=== PATIENT | male | born 1985 | race Caucasian/White ===

== ENCOUNTER 2016-04-26 17:21 | Emergency (ER) | payer OTHER ==
[~2016-04-26] VITALS: Ht 170.2 cm; Wt 77.1 kg
--- NOTE | 2016-04-26 18:21 | ED PSYCHIATRIC COMPLAINT ---
See Addendum History of Present Illness General Chief Complaint: ETOH/Drug Related Complaint Stated Complaint: ETOH DETOX Source: patient, family Exam Limitations: no limitations Vital Signs & Intake/Output Vital Signs & Intake/Output Vital Signs Date Time Temp Pulse Resp B/P Pulse O2 O2 Flow FiO2 Ox Delivery Rate 04/27 0735 97.9 82 18 138/84 98 Room Air 04/27 0734 97.9 82 18 138/84 04/27 0642 97.1 62 16 128/74 04/27 0513 96.6 57 16 120/71 99 Nasal Cannula 04/27 0500 96.6 57 16 120/71 04/27 0202 96.0 82 18 136/60 98 Room Air 04/27 0200 96.0 82 18 136/60 04/26 2110 96.3 80 16 145/86 04/26 2110 96.3 80 16 145/86 98 Room Air 04/26 1917 Room Air 04/26 1738 98.1 100 18 131/88 98 Room Air ED Intake and Output 04/27 0000 04/26 1200 Intake Total Output Total Balance Patient 170 lb Weight Allergies Coded Allergies: No Known Allergies (04/26/16) Reconcile Medications Acamprosate Calcium 333 MG TABLET. 2 TAB PO TID ALCOHOL CRAVINGS (Reported) Hydroxyzine Pamoate 50 MG CAPSULE 1 CAP PO BID ANXIETY (Reported) Lorazepam (Unknown Strength) TABLET (Unknown Dose) PO TID UNKNOWN (Reported) Quetiapine Fumarate 200 MG TABLET 1 TAB PO QPM MENTAL HEALTH (Reported) Triage Note: 31 YEAR OLD MALE TOE R , REQUEST ETOH DETOX, STATES THAT HE HAS BEEN DRINKING FOR OVER 8 YEARS, DRINKS VODKA DAILY , LAST DRINK WAS LAST WEDNESDAY. PT WAS SEEN AT [facility] AND WAS DISCHARGED FROM ER LAST WEDNESDAY WITH ATIVAN, PT ALSO TAKES SEROQUEL/VISTERIL/ACAMPROSTATE CALC . PT ALSO STATES THAT HE HAS A HSITORY OF SEIZURES. FRIEND STATES THAT HIS LAST DETOX HE WAS IN A PSYCHE UNIT. PT WAS IN DETOX IN 2014 IN [place]. DENIES SI OR HI. LAST TOOK ATIVAN AT 1600 Triage Nurses Notes Reviewed? yes HPI: Patient is a 31-year-old male presents with significant other for evaluation of alcohol detox, hallucinations, paranoia. Patient reports he drinks daily, last drink was 7 days ago. Patient was seen at [facility] and prescribed Ativan she has been taking 2-3 times a day. Patient last had a known alcohol withdrawal seizure in 2014. Patient's significant other reports that he has been having intermittent auditory and visual hallucinations. Patient reports that when he wakes up he hears a band playing that is not present. Occasionally he will see things that he does not believe to be there. No current hallucinations. Significant other also reports that patient has been increasingly paranoid over the past 1 week, very suspicious of things being present in the middle of the night. Patient denies illicit substance ingestion, suicidal ideation, homicidal ideation (REANNA POST) Past History Travel History Traveled to [place] past 21 day No Medical History Any Pertinent Medical History? see below for history Neurological: seizure EENT: NONE Cardiovascular: NONE Respiratory: NONE Gastrointestinal: NONE Hepatic: NONE Renal: NONE Musculoskeletal: NONE Psychiatric: alcohol dependence, bipolar disease, ADHD Endocrine: NONE Blood Disorders: NONE Cancer(s): NONE DIAL REFINISHER/Reproductive: NONE Surgical History Surgical History: non-contributory Psychosocial History What is your primary language Albanian Tobacco Use: Never used ETOH Use: alcoholic Illicit Drug Use: denies illicit drug use Family History Hx Contributory? No (REANNA POST) Review of Systems Review of Systems Constitutional: Denies: chills, fever. EENTM: Reports: no symptoms. Respiratory: Denies: cough, short of breath. Cardiovascular: Denies: chest pain. GI: Reports: no symptoms. Denies: abdominal pain. Genitourinary: Reports: no symptoms. Musculoskeletal: Reports: no symptoms. Skin: Reports: no symptoms. Neurological/Psychological: Reports: see HPI. Hematologic/Endocrine: Reports: no symptoms. Immunologic/Allergic: Reports: no symptoms. (REANNA POST) Physical Exam Physical Exam General Appearance: alert, awake Head: atraumatic, normal appearance Eyes: Bilateral: normal appearance, PERRL, EOMI. Ears, Nose, Throat: normal pharynx, normal ENT inspection, hearing grossly normal Neck: normal inspection, supple, full range of motion, no midline tenderness Respiratory: normal breath sounds, chest non-tender, no respiratory distress, lungs clear Cardiovascular: regular rate/rhythm Gastrointestinal: soft, non-tender Extremities: abrasions to dorsal surface of right hand, no bony tenderness. Full range of motion of all 4 extremities Neurological/Psychiatric: awake, alert, flat Appearance/Memory/Insight: impaired recent memory Behavoir/Eye Contact/Speech: cooperative Thoughts/Hallucinations: paranoid Skin: warm/dry SAD PERSONS SAD PERSONS Response Value Male Sex? yes 1 Depression/Hopelessness? yes 2 Excessive Ethanol/Drug Use? yes 1 Rational Thinking Loss? yes 2 Social Support? has support 0 Total 6 SAD PERSONS Done? yes (EMILY MADSEN,REANNA) Progress Differential Diagnosis: drug intoxication, drug overdose, drug withdrawal, electrolyte abnormality, encephalitis, IC hem/mass/tumor, psychosis, bipolar, mood disorder, personality disorder, medication withdrawal, alcohol withdrawal, DT's Plan of Care: Orders Procedure Date/time Status Regular Diet 04/27 B Active Patient Safety Monitor 04/27 0400 Active Patient Safety Monitor 04/27 0000 Active CIWA 04/26 183 Active URINE DRUG SCREEN FOR ER ONLY 04/26 183 Complete MAGNESIUM 04/26 183 Complete ETHANOL 04/26 183 Complete COMPREHENSIVE METABOLIC PANEL 04/26 183 Complete CBC WITHOUT DIFFERENTIAL 04/26 1834 Complete ED CRISIS PSYCH CONSULT 04/26 183 Active Laboratory Tests 04/26/16 185: Serum Alcohol < 10.0 04/26/16 185: Anion Gap 12, Estimated GFR > 60, BUN/Creatinine Ratio 20.0, Glucose 105 H, Calcium 10.2, Magnesium 2.0, Total Bilirubin 0.4, AST 42, ALT 85 H, Alkaline Phosphatase 52, Total Protein 7.3, Albumin 4.5, Globulin 2.8, Albumin/Globulin Ratio 1.6, CBC w Diff NO MAN DIFF REQ, RBC 4.28 L, MCV 94.5 H, MCH 31.4 H, RDW 14.4, MPV 8.0, Gran % 52.3, Lymphocytes % 28.6, Monocytes % 17.2 H, Eosinophils % 1.4, Basophils % 0.5, Absolute Granulocytes 2.7, Absolute Lymphocytes 1.5, Absolute Monocytes 0.9 H, Absolute Eosinophils 0.1, Absolute Basophils 0, PUBS MCHC 33.3, Urine Opiates Screen < 100.00, Methadone Screen 49, Barbiturate Screen < 60, Ur Phencyclidine Scrn < 6.00, Amphetamines Screen < 100 , U Benzodiazepines Scrn 701 H, Urine Cocaine Screen < 50, Urine Cannabis Screen < 5.00 Patient is 7 days since his last alcohol intake. No signs of florid withdrawal. Suspect that there is psychiatric pathology rather than etiology of symptoms being primarily from alcohol withdrawal. 04/26/2016 9:43:37 PM: Patient evaluated by psychiatric clinician, plan for patient to remain in the emergency department overnight for reevaluation in the morning. Patient's dose of Seroquel ordered, patient resting comfortably. 04/27/2016 12:32:02 AM: Patient signed out to Dr. enrique with plan for crisis re-evaluation in the morning. (REANNA POST) Hand-Off Endorsed To: RAFA ENRIQUE MD Endorsed Time: 003 Pending: consult (crisis re-evaluation) (REANNA POST) Hand-Off Endorsed To: MARIKA CARLSON MD Endorsed Time: 0700 Pending: consult (RAFA ENRIQUE MD) Hand-Off Endorsed To: EMELNY SMILEY DO Endorsed Time: 0700 Pending: consult (re-eval) (MARIKA CARLSON MD) Departure Departure Disposition: STILL A PATIENT Condition: Stable Clinical Impression Primary Impression: Bipolar disorder Qualifiers: Active/Remission status: remission status unspecified Qualified Code: F31.9 - Bipolar disorder, unspecified Referrals: PATIENT HAS NO PRIMARY CARE DR (PCP/Family) Departure Forms: Customer Survey General Discharge Information (REANNA POST) Departure Comments 04/27/16 7 AM PATIENT SIGNED OUT TO MT DR CARLSON, AWAITING CRISIS REEVALUATION. (EMELYN SMILEY DO)
[2016-04-26] MEDS ORDERED: LORAZEPAM1 M1 PO (18:57)
[2016-04-26] MEDS ORDERED: HYDROXYZINE PAM50 M1 PO (18:58)
[2016-04-26] MEDS ORDERED: ACAMPROSATE CA333 M1 PO (18:58)
[2016-04-26] MEDS ORDERED: QUETIAPINE FUM200 M1 PO (18:58)
[2016-04-26 19:16] LABS: ABSOLUTE BASOPHIL COUNT 0 /CUMM (0.0-0.2); ABSOLUTE EOSINOPHIL COUNT 0.1 /CUMM (0.0-0.7); ABSOLUTE GRANULOCYTE CT 2.7 /CUMM (1.4-6.5); ABSOLUTE LYMPH COUNT 1.5 /CUMM (1.2-3.4); ABSOLUTE MONOCYTE COUNT 0.9 /CUMM (0.10-0.60); BASOPHIL % 0.5 % (0.0-2.0); EOSINOPHIL % 1.4 % (0-5); GRANULOCYTE % 52.3 % (42.2-75.2); HEMATOCRIT 40.4 % (42-52); MEAN CORPUSCULAR HGB 31.4 PG (27.0-31.0); MEAN CORPUSCULAR HGB CONC 33.3 G/DL (33.0-37.0); MEAN CORPUSCULAR VOLUME 94.5 FL (80.0-94.0); PLATELET COUNT 207 /CUMM (130-400); RBC DISTRIBUTION WIDTH 14.4 % (11.5-14.5); RED BLOOD CELL CT 4.28 /CUMM (4.70-6.10); WHITE BLOOD CELL COUNT 5.2 /CUMM (4.8-10.8)
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
[2016-04-27 10:33] VITALS: BP 136/70
== END 2016-04-27 10:35 ==
LOC: ERH 17:21
PROVIDERS: Physician Assistant
DX: F31.9 Bipolar disorder, unspecified (principal)
CPT/HCPCS: 80307; G0463; G0480